=== PATIENT | male | born 1960 | race Two or more races ===

== ENCOUNTER 2022-10-03 06:52 | Day surgery (SDC) | payer MEDICAID ==
[~2022-10-03] VITALS: Ht 190.5 cm; Wt 124.7 kg
[~2022-10-03 06:52] MED LIST: ASPI-543 PO; ATOR40TA52 PO; FURO1TAB33 PO; POTA1TAB61 PO
[2022-10-03] MEDS ORDERED: LIDOCAINE VISCOUS 2% 15ML UD MT STA (07:51)
[2022-10-03] MEDS ORDERED: fentaNYL CITRATE 100 MCG/2 ML VL IV STA (07:51)
[2022-10-03] MEDS ORDERED: MIDAZOLAM HCL 5 MG/ML-1ML VIAL IV STA (07:51)
[2022-10-03] MEDS ORDERED: MIDAZOLAM HCL 2MG/2ML 2ml VIAL (1mg/ml) ONE (08:18)
== END 2022-10-03 10:28 | disposition home or self-care (01) ==
LOC: CATH 06:52
PROVIDERS: ATTEND Internal Medicine Cardiovascular Disease
DX: I08.1 Rheumatic disorders of both mitral and tricuspid valves (principal)
CPT/HCPCS: 93312; J2250; J3010; J7030; 99152

== ENCOUNTER 2022-10-06 06:52 | Day surgery (SDC) | payer MEDICAID ==
[2022-10-06] VITALS (7 sets, daily range): BP systolic 131–159; BP diastolic 72–95; PULSE 77–92; RESP 12–21; O2SAT 90–95
[2022-10-06] MEDS ORDERED: IODIXANOL 320MG/ML 100ML BTL IV ONE (07:42)
[2022-10-06] MEDS ORDERED: LIDOCAINE 2%HCL (LOCAL ANESTH.) INJ 20ML MDV ONE (07:42)
[2022-10-06] MEDS ORDERED: HEPARIN SODIUM (PORCINE) 5000 UNITS/ML 1ML VIAL ONE (07:45)
[2022-10-06] MEDS ORDERED: ANGIOMAX 250 MG VIAL IV ONE (07:45)
[2022-10-06] MEDS ORDERED: VERAPAMIL 2.5MG/ML INJ 2ML VIAL IV ONE (07:46)
[2022-10-06] MEDS ORDERED: SODIUM CHL 0.9% 0 ML ONE (07:46)
[2022-10-06] MEDS ORDERED: MIDAZOLAM HCL 2MG/2ML 2ml VIAL (1mg/ml) ONE (07:46)
[2022-10-06] MEDS ORDERED: fentaNYL CITRATE 100 MCG/2 ML VL ONE (07:46)
== END 2022-10-06 10:58 | disposition home or self-care (01) ==
LOC: CATH 06:52
PROVIDERS: ATTEND Internal Medicine Cardiovascular Disease
DX: R94.39 Abnormal result of other cardiovascular function study (principal); I42.8 Other cardiomyopathies; M19.90 Unspecified osteoarthritis, unspecified site; I10 Essential (primary) hypertension; E66.9 Obesity, unspecified; I50.20 Unspecified systolic (congestive) heart failure; Z90.49 Acquired absence of other specified parts of digestive tract; Z79.82 Long term (current) use of aspirin; Z79.899 Other long term (current) drug therapy; Z98.890 Other specified postprocedural states
CPT/HCPCS: 93458; C1725; C1757; C1769; C1894; J1644; J2250; J3010; J7030; Q9967; 99152; 99153